=== PATIENT | male | born 1965 | race Caucasian/White ===

== ENCOUNTER 2023-01-31 05:09 | Day surgery (SDC) | payer OTHER ==
[2023-01-29 16:35] VITALS: BMI 28.2
[2023-01-31 09:24] VITALS: TEMP 97.6
[2023-01-31 09:58] VITALS: BP 100/59; PULSE 69; RESP 17
== END 2023-01-31 10:15 | disposition home or self-care (01) ==
LOC: JASU-ENDO 05:09
PROVIDERS: ATTEND Internal Medicine Gastroenterology
PROC: 0DBL8ZX Excision of Transverse Colon, Via Natural or Artificial Opening Endoscopic, Diagnostic (ICD-10-PCS; principal; 2023-01-31 09:00)
DX: Z12.11 Encounter for screening for malignant neoplasm of colon (principal); K63.5 Polyp of colon; K64.8 Other hemorrhoids; K64.4 Residual hemorrhoidal skin tags; K57.30 Diverticulosis of large intestine without perforation or abscess without bleeding; K92.1 Melena; Z83.71 Family history of colonic polyps